=== PATIENT | male | born 1945 | race Hispanic/Latino ===

== ENCOUNTER → 2020-01-25 | Outpatient (CLI) | payer OTHER | END | disposition home or self-care (01) | LOC: RAH 13:50 | PROVIDERS: ATTEND Urology | DX: N13.2 Hydronephrosis with renal and ureteral calculous obstruction (principal); J98.11 Atelectasis; K57.30 Diverticulosis of large intestine without perforation or abscess without bleeding; M47.816 Spondylosis without myelopathy or radiculopathy, lumbar region | CPT/HCPCS: 74176 ==

== ENCOUNTER → 2021-07-08 | Outpatient (CLI) | payer OTHER | END | disposition home or self-care (01) | LOC: RAH 14:10 | PROVIDERS: ATTEND Urology | DX: N20.0 Calculus of kidney (principal); N40.0 Benign prostatic hyperplasia without lower urinary tract symptoms; K57.30 Diverticulosis of large intestine without perforation or abscess without bleeding | CPT/HCPCS: 74176 ==

== ENCOUNTER → 2021-09-02 | Outpatient (CLI) | payer OTHER | END | disposition home or self-care (01) | LOC: RAH 11:29 | PROVIDERS: ATTEND Urology | DX: N20.0 Calculus of kidney (principal); M47.815 Spondylosis without myelopathy or radiculopathy, thoracolumbar region | CPT/HCPCS: 74018; 76100 ==

== ENCOUNTER 2021-10-06 11:21 | Day surgery (SDC) | payer OTHER, MEDICARE ==
[2021-10-01 12:34] LABS: HEMATOCRIT 49.8 % (42-54); MEAN CORPUSCULAR HEMOGLOBIN 28.7 pg (27.0-33.0); MEAN CORPUSCULAR HGB CONC 31.3 g/dL (32.0-36.0); MEAN CORPUSCULAR VOLUME 91.7 fL (79-99); RED BLOOD CELL COUNT(AUTO) 5.43 MIL/uL (4.50-6.20); RED CELL DISTRIBUTION WIDTH 15.3 % (11.0-15.5)
[2021-10-01 12:45] LABS: APPEARANCE,URINE Clear (CLEAR); BILIRUBIN,URINE Negative (NEGATIVE); COLOR,URINE Dark Yellow (YELLOW); GLUCOSE, URINE (UA) Negative (NEGATIVE); KETONES,URINE Trace mg/dL (NEGATIVE); LEUKOCYTE ESTERASE ,URINE Trace (NEGATIVE); NITRATE,URINE Negative (NEGATIVE); OCCULT BLOOD,URINE Negative (NEGATIVE); PH,URINE 6.5 (5.0-8.0); PROTEIN,URINE Negative (NEGATIVE)
[2021-10-01 12:47] LABS: INR 1.03 (0.85-1.15); PROTHROMBIN TIME 11.2 SEC (9.6-11.6)
[2021-10-01 12:48] LABS: PARTIAL THROMBOPLASTIN TIME 27.4 SEC (26.3-35.5)
[2021-10-01 12:52] LABS: BACTERIA,URINE Rare /HPF (None Seen); MUCUS,URINE Rare LPF (None Seen); RBC,URINE 0-1 /HPF (0-1); SQUAMOUS EPITHELIAL CELL,UR Rare /HPF (0-2); WBC,URINE 0-1 /HPF (0-1)
[2021-10-01 12:55] LABS: ALBUMIN 3.7 g/dL (3.5-5.0); BILIRUBIN,TOTAL 0.4 mg/dL (0.2-1.0); CREATININE 1.1 mg/dL (0.5-1.5); POTASSIUM 4.2 mmol/L (3.5-5.1); TOTAL PROTEIN, SERUM 7.5 g/dL (6.0-8.3)
[2021-10-06] VITALS (18 sets, daily range): BP systolic 121–174; BP diastolic 60–100
[~2021-10-06] VITALS: Ht 170.2 cm; Wt 79.3 kg
[~2021-10-06 11:21] MED LIST: CEFAZOLIN SODIUM 1 GM VIAL IVP ONE; LACTATED RINGERS 1000ML 1,000 ML IV SCH
[2021-10-06] MEDS ORDERED: CEFAZOLIN SODIUM 1 GM VIAL ONE ×2 (12:19→13:48)
[2021-10-06] MEDS ORDERED: 0.9%NACL 1000ML 1,000 ML IV ONE (12:20)
[2021-10-06] MEDS ORDERED: LISI20TA24 PO (13:02)
[2021-10-06] MEDS ORDERED: TAMS-1 PO (13:02)
[2021-10-06] MEDS ORDERED: ROSU10TA28 PO (13:02)
[2021-10-06] MEDS ORDERED: FENTANYL CITRATE PF 50 MCG/1 ML 2ML VIAL ONE ×2 (13:26→14:33)
[2021-10-06] MEDS ORDERED: PROPOFOL 10 MG/ML 20ML VIAL IV ONE (13:26)
[2021-10-06] MEDS ORDERED: LIDOCAINE PF 100MG/5ML (2%) SYRINGE 5ML ONE (13:26)
[2021-10-06] MEDS ORDERED: MEPERIDINE-PF 25 MG/ML SYG ONE (13:50)
[2021-10-06] MEDS ORDERED: GLYCOPYRROLATE 1 MG/5 ML SYRINGE ONE (13:50)
[2021-10-06] MEDS ORDERED: KETOROLAC 30MG VIAL (30MG/ML) ONE (14:28)
[2021-10-06] MEDS ORDERED: CEPH500B PO (22:17)
== END 2021-10-06 17:00 | disposition home or self-care (01) ==
LOC: DAH 11:21
PROVIDERS: ATTEND Urology
DX: N20.0 Calculus of kidney (principal); Z20.822 Contact with and (suspected) exposure to COVID-19; I10 Essential (primary) hypertension; E78.5 Hyperlipidemia, unspecified; Z79.01 Long term (current) use of anticoagulants; Z98.890 Other specified postprocedural states
CPT/HCPCS: 36415; 50590; 71046; 80053; 81001; 85027; 85610; 85730; 87088; 87635; 93005; A4215; A4221; A4222; A4223; A4335; A4663; A6260; C9803; J0690 ×2; J1885; J2001; J2175; J2704; J3010 ×2; J3490; J7030; J7120

== ENCOUNTER 2021-10-06 21:18 | Emergency (ER) | payer OTHER, MEDICARE ==
[~2021-10-06] VITALS: Ht 170.2 cm; Wt 77.1 kg
[~2021-10-06 21:18] MED LIST changes: -CEFAZOLIN SODIUM 1 GM VIAL IVP ONE; -LACTATED RINGERS 1000ML 1,000 ML IV SCH; +LISI20TA24 PO; +ROSU10TA28 PO; +TAMS-1 PO
[2021-10-06 21:23] VITALS: BP 170/97
[2021-10-06 21:49] LABS: APPEARANCE,URINE SL CLOUDY (CLEAR); BILIRUBIN,URINE NEGATIVE (NEGATIVE); COLOR,URINE AMBER (YELLOW); GLUCOSE, URINE (UA) NEGATIVE (NEGATIVE); KETONES,URINE 5 mg/dL (NEGATIVE); LEUKOCYTE ESTERASE ,URINE NEGATIVE (NEGATIVE); NITRATE,URINE NEGATIVE (NEGATIVE); OCCULT BLOOD,URINE LARGE (NEGATIVE); PROTEIN,URINE 30 mg/dL (NEGATIVE); UROBILINOGEN,URINE 0.2 mg/dL (0.2-1.0)
[2021-10-06 21:56] LABS: BACTERIA,URINE Few /HPF (None Seen); MUCUS,URINE Few LPF (None Seen); RBC,URINE >100 /HPF (0-1); SQUAMOUS EPITHELIAL CELL,UR Few /HPF (0-2)
[2021-10-06] MEDS ORDERED: LIDOCAINE HCL-MPF 1% 2ML VIAL ONE (22:06)
[2021-10-06] MEDS ORDERED: CEPH500B PO (22:17)
[2021-10-06] MEDS ORDERED: CEFTRIAXONE 1G VIAL IM ONE (22:30)
== END 2021-10-06 22:34 | disposition home or self-care (01) ==
LOC: EDH 21:18
DX: N39.0 Urinary tract infection, site not specified (principal); R33.9 Retention of urine, unspecified; R31.9 Hematuria, unspecified; I10 Essential (primary) hypertension; E78.00 Pure hypercholesterolemia, unspecified; Z79.899 Other long term (current) drug therapy
CPT/HCPCS: 51702; 81001; 87088; 96372; 99284; J0696; J3490

== ENCOUNTER → 2021-10-21 | Outpatient (CLI) | payer OTHER, MEDICARE ==
[~2021-10-21] MED LIST changes: +CEPH500B PO
== END | disposition home or self-care (01) ==
LOC: RAH 10:00
PROVIDERS: ATTEND Urology
DX: N20.0 Calculus of kidney (principal)
CPT/HCPCS: 74018; 76100

== ENCOUNTER → 2023-04-29 | Emergency (ER) | payer OTHER, MEDICARE ==
[~2023-04-29] VITALS: Ht 162.6 cm; Wt 72.6 kg
[2023-04-29 11:29] VITALS: BP 146/86
[2023-04-29 13:19] LABS: BASOPHILS % (AUTO) 0.3 % (0.0-5.0); EOSINOPHILS % (AUTO) 0.4 % (0.0-8.0); HEMATOCRIT 44.7 % (42-54); LYMPHOCYTES % (AUTO) 10.5 % (21.0-51.0); MEAN CORPUSCULAR HEMOGLOBIN 29.4 pg (27.0-33.0); MEAN CORPUSCULAR HGB CONC 33.1 g/dL (32.0-36.0); MEAN CORPUSCULAR VOLUME 88.9 fL (79-99); MONOCYTES % (AUTO) 10.5 % (3.0-13.0); NEUTROPHILS % (AUTO) 77.1 % (40.0-77.0); PLATELET COUNT (AUTO) 245 K/uL (130-400); RED BLOOD CELL COUNT(AUTO) 5.03 MIL/uL (4.50-6.20); RED CELL DISTRIBUTION WIDTH 14.3 % (11.0-15.5); WHITE BLOOD COUNT (AUTO) 11.3 K/uL (4.8-10.8)
[2023-04-29 13:26] LABS: APPEARANCE,URINE CLEAR (CLEAR); BILIRUBIN,URINE NEGATIVE (NEGATIVE); COLOR,URINE YELLOW (YELLOW); GLUCOSE, URINE (UA) NEGATIVE (NEGATIVE); KETONES,URINE NEGATIVE (NEGATIVE); LEUKOCYTE ESTERASE ,URINE 75 Leu/uL (NEGATIVE); NITRATE,URINE NEGATIVE (NEGATIVE); OCCULT BLOOD,URINE SMALL (NEGATIVE); PROTEIN,URINE 20 mg/dL (NEGATIVE); UROBILINOGEN,URINE 0.2 mg/dL (0.2-1.0)
[2023-04-29 13:29] LABS: BACTERIA,URINE FEW /HPF (None Seen); MUCUS,URINE RARE LPF (None Seen)
[2023-04-29 13:41] LABS: POTASSIUM 3.3 mmol/L (3.5-5.1)
[2023-04-29 13:46] LABS: ALBUMIN 3.8 g/dL (3.5-5.0); TOTAL PROTEIN, SERUM 7.6 g/dL (6.0-8.3)
== END ==
LOC: EDH 11:28
DX: R11.2 Nausea with vomiting, unspecified (principal); E86.0 Dehydration; R19.7 Diarrhea, unspecified; Z53.21 Procedure and treatment not carried out due to patient leaving prior to being seen by health care provider; Z20.822 Contact with and (suspected) exposure to COVID-19
CPT/HCPCS: 99281; 87635; 80053; 85025; 87088; 87804 ×2; 83605; 81001; 36415; C9803